=== PATIENT | male | born 1960 | race Caucasian/White ===

== ENCOUNTER 2016-07-10 06:52 | Day surgery (SDC) | payer BC ==
--- NOTE | ~2016-07-10 | EGD ---
EGD REPORT [facility] [address] [address] NAME: SHA KIRK : [birth year] STATUS : [facility]#: [id number] AGE: 55 ADM/REG DATE : 07/10/16 MR#: [id number] REPORT SERV DATE: 07/19/16 DICTATED BY: GEORGINA MARIA DATE: 07/19/16 REPORT STATUS : Draft TRANSCRIBED BY: [facility] DATE: 07/19/16 Endoscopy Center Patient Name: Sha Kirk Date of : 1960 Attending MD: GEORGINA MARIA MD Procedure Date No Time: 07/10/2016 Procedure: Upper GI endoscopy Indications: Heartburn, Nausea, Persistent vomiting of unknown cause Referring MD: RASHMI WAGNER MD Medicines: Propofol per Anesthesia Complications: No immediate complications. Procedure: Pre-Anesthesia Assessment: - ASA Grade Assessment: II - A patient with mild systemic disease. After obtaining informed consent, the endoscope was passed under direct vision. Throughout the procedure, the patient's blood pressure, pulse, and oxygen saturations were monitored continuously. The GIF H190 [id number] was introduced through the mouth, and advanced to the third part of duodenum. The upper GI endoscopy was accomplished without difficulty. The patient tolerated the procedure well. Findings: A medium-sized hiatus hernia was present. The exam was otherwise without abnormality. Impression: - Hiatus hernia. - The examination was otherwise normal. Recommendation: - Return to my office in 3 weeks. Procedure Code(s): --- Professional --- 53689, Esophagogastroduodenoscopy, flexible, transoral; diagnostic, including collection of specimen(s) by brushing or washing, when performed (separate procedure) Diagnosis Code(s): --- Professional --- K44.9, Diaphragmatic hernia without obstruction or gangrene R12, Heartburn R11.0, Nausea R11.10, Vomiting, unspecified EGD REPORT [facility] [address] [facility] [place]. [address] NAME: SHA KIRK : [birth year] STATUS : [facility]#: [id number] AGE: 55 ADM/REG DATE : 07/10/16 MR#: [id number] REPORT SERV DATE: 07/19/16 DICTATED BY: GEORGINA MARIA DATE: 07/19/16 REPORT STATUS : Draft TRANSCRIBED BY: [employer] DATE: 07/19/16 CPT copyright 2013 [employer]. All rights reserved. The codes documented in this report are preliminary and upon certified medical records coder review may be revised to meet current compliance requirements. GEORGINA MARIA MD 07/10/2016 9:17 AM This report has been signed electronically. Number of Addenda: 0 Note Initiated On: 07/10/2016 7:33 AM Scope Withdrawal Time 0 hours 0 minutes 0 seconds [address] [place], [place] [id number]
--- NOTE | ~2016-07-10 | EGD ---
EGD REPORT [facility] [address] [address] NAME: SHA KIRK : [birth year] [place] [facility] [place]#: [id number] AGE: 55 ADM/REG DATE : 07/10/16 MR#: [id number] REPORT SERV DATE: 07/10/16 DICTATED BY: GEORGINA MARIA DATE: 07/10/16 REPORT STATUS : Draft [facility]ANSCRIBED BY: [facility] DATE: 07/10/16 Endoscopy Center Patient Name: Sha Kirk Date of : 1960 Attending MD: GEORGINA MARIA MD Procedure Date No Time: 07/10/2016 Procedure: Upper GI endoscopy Indications: Heartburn, Nausea, Persistent vomiting of unknown cause Referring MD: RASHMI WAGNER MD Medicines: Propofol per Anesthesia Complications: No immediate complications. Procedure: Pre-Anesthesia Assessment: - ASA Grade Assessment: II - A patient with mild systemic disease. After obtaining informed consent, the endoscope was passed under direct vision. Throughout the procedure, the patient's blood pressure, pulse, and oxygen saturations were monitored continuously. The GIF H190 [id number] was introduced through the mouth, and advanced to the third part of duodenum. The upper GI endoscopy was accomplished without difficulty. The patient tolerated the procedure well. Findings: A medium-sized hiatus hernia was present. The exam was otherwise without abnormality. Impression: - Hiatus hernia. - The examination was otherwise normal. Recommendation: - Return to my office in 3 weeks. Procedure Code(s): --- Professional --- 07729, Esophagogastroduodenoscopy, flexible, transoral; diagnostic, including collection of specimen(s) by brushing or washing, when performed (separate procedure) Diagnosis Code(s): --- Professional --- K44.9, Diaphragmatic hernia without obstruction or gangrene R12, Heartburn R11.0, Nausea R11.10, Vomiting, unspecified EGD REPORT [facility] [address] [facility] [place]. [address] NAME: SHA KIRK : 58 [place] [facility] [place]#: [id number] AGE: 55 ADM/REG DATE : 07/10/16 MR#: [id number] REPORT SERV DATE: 07/10/16 DICTATED BY: GEORGINA MARIA. DATE: 07/10/16 REPORT STATUS : Draft TRANSCRIBED BY: [employer] DATE: 07/10/16 CPT copyright 2013 [employer]. All rights reserved. The codes documented in this report are preliminary and upon food or baggage handling rampman review may be revised to meet current compliance requirements. GEORGINA MARIA MD 07/10/2016 9:17 AM This report has been signed electronically. Number of Addenda: 0 Note Initiated On: 07/10/2016 7:33 AM Scope Withdrawal Time 0 hours 0 minutes 0 seconds [address] [facility] [address] [place], [place] [id number]
[~2016-07-10 06:52] MED LIST: COZAAR100 MG PO; GLUCPH PO; HUMALOG SC; IBU400 PO; IBU600 PO; IBU800 PO; INSULIN; LANTUS SC; LEVSINTAB PO; NEXIUM40 PO; T PO
== END 2016-07-10 23:59 | disposition home or self-care (01) ==
LOC: DMU 06:52
PROVIDERS: Internal Medicine Gastroenterology
PROC: 0DJ08ZZ Inspection of Upper Intestinal Tract, Via Natural or Artificial Opening Endoscopic (ICD-10-PCS; principal; 2016-07-10 08:30)
DX: K44.9 Diaphragmatic hernia without obstruction or gangrene (principal); R12 Heartburn; R11.0 Nausea; R11.10 Vomiting, unspecified; I10 Essential (primary) hypertension; K21.9 Gastro-esophageal reflux disease without esophagitis; F12.90 Cannabis use, unspecified, uncomplicated; E11.9 Type 2 diabetes mellitus without complications; Z85.038 Personal history of other malignant neoplasm of large intestine; Z90.49 Acquired absence of other specified parts of digestive tract; Z98.41 Cataract extraction status, right eye; Z98.42 Cataract extraction status, left eye; Z96.1 Presence of intraocular lens; D64.9 Anemia, unspecified; Z79.899 Other long term (current) drug therapy; Z79.4 Long term (current) use of insulin
CPT/HCPCS: 82962